=== PATIENT | male | born 1990 | race Caucasian/White ===

== ENCOUNTER 2024-05-07 06:16 | Day surgery (SDC) | payer BC, SELFPAY ==
[2024-05-07] VITALS (8 sets, daily range): BP systolic 107–121; BP diastolic 61–80; BMI 20.2
[2024-05-07] MEDS: TYLENOL 1000 MG PO (08:27)
[2024-05-07] MEDS: NORMOSOL-R/PLASMALYTE-A 1000 IV (08:36)
== END 2024-05-07 12:16 | disposition home or self-care (01) ==
LOC: SDS 06:16
PROVIDERS: ATTENDING PHYSICIAN Otolaryngology
DX: J34.2 Deviated nasal septum (principal); J34.3 Hypertrophy of nasal turbinates
CPT/HCPCS: 30520; 30140